=== PATIENT | female | born 1985 | race African-American/Black ===

== ENCOUNTER 2016-10-18 16:49 | Emergency (ER) | payer MEDICAID | END 2016-10-18 20:30 | disposition home or self-care (01) | LOC: D.ER 16:49 | DX: M54.30 Sciatica, unspecified side (principal); F17.200 Nicotine dependence, unspecified, uncomplicated; I25.10 Atherosclerotic heart disease of native coronary artery without angina pectoris; I10 Essential (primary) hypertension; E11.9 Type 2 diabetes mellitus without complications ==